=== PATIENT | female | born 1960 | race Caucasian/White ===

== ENCOUNTER 2020-10-12 23:27 | Emergency (ER) | payer OTHER ==
[~2020-10-12 23:27] MED LIST: ASPIR-LOW81 MG PO; IMDUR ER TAB 6060 MG PO; ISOSORBIDE MONO60 MG PO; LANSOPRAZOLE15 MG PO; LIPITOR TAB 2020 MG PO; LISINOPRIL20 MG PO; LOPRESSOR50 MG PO; MUCINEX DM ER1 EAC1 PO; NEURONTIN800 MG PO; NORVASC10 MG PO; NOVOLIN 70100 UNIT/2 SQ; NOVOLOG 10100 UNITS2 SQ; OMNICEF 300 MG300 MG PO; PLAVIX 75 MG TA75 MG PO; PREVACID 24HR15 MG PO; PRINIVIL20 MG PO; RANEXA1000 MG PO; RANEXA500 MG PO; TOUJEO SQ; TRESIBA100 UNIT/1 SQ; ULTRAM50 MG PO; ZANAFLEX4 M1 PO
[2020-10-13 01:17] LABS: RED BLOOD COUNT 4.19 M/UL (4.00-5.10); WHITE BLOOD COUNT 6.8 K/UL (4.5-11.0)
== END 2020-10-13 03:55 | disposition home or self-care (01) ==
LOC: ER1 23:27
PROVIDERS: Physician Assistant
DX: R10.817 Generalized abdominal tenderness (principal); R11.0 Nausea; E11.43 Type 2 diabetes mellitus with diabetic autonomic (poly)neuropathy; K31.84 Gastroparesis; I25.10 Atherosclerotic heart disease of native coronary artery without angina pectoris; I10 Essential (primary) hypertension; I25.2 Old myocardial infarction; F17.210 Nicotine dependence, cigarettes, uncomplicated; Z79.4 Long term (current) use of insulin; Z91.048 Other nonmedicinal substance allergy status; Z98.61 Coronary angioplasty status; Z98.890 Other specified postprocedural states
CPT/HCPCS: 80053; 81001; 83690; 85025; 87077; 87086; 87186; 96374; 96375; 99284; Q9967

== ENCOUNTER → 2021-03-26 | Outpatient (CLI) | payer OTHER | LOC: MRI 12:52 | DX: M50.323 Other cervical disc degeneration at C6-C7 level (principal); M48.02 Spinal stenosis, cervical region; M47.812 Spondylosis without myelopathy or radiculopathy, cervical region | CPT/HCPCS: 72141 ==

== ENCOUNTER 2021-06-09 16:25 | Emergency (ER) | payer OTHER ==
[2021-06-09 18:18] LABS: HEMOGLOBIN 8.1 gm/dl (12.3-15.3); RED BLOOD COUNT 2.91 M/UL (4.00-5.10); WHITE BLOOD COUNT 4.7 K/UL (4.5-11.0)
== END 2021-06-10 01:22 | disposition home or self-care (01) ==
LOC: ER1 16:25
PROVIDERS: Physician Assistant
DX: D64.9 Anemia, unspecified (principal); E11.9 Type 2 diabetes mellitus without complications; I25.10 Atherosclerotic heart disease of native coronary artery without angina pectoris; I10 Essential (primary) hypertension; F17.200 Nicotine dependence, unspecified, uncomplicated
CPT/HCPCS: 36430; 80053; 85025; 86850; 86900; 86901; 86920; 99284; P9016

== ENCOUNTER 2021-08-10 13:02 | Observation (INO) | payer OTHER ==
[~2021-08-10] VITALS: Ht 170.2 cm; Wt 85.3 kg
[2021-08-10 14:03] LABS: RED BLOOD COUNT 3.25 M/UL (4.00-5.10); WHITE BLOOD COUNT 3.7 K/UL (4.5-11.0)
[2021-08-10 14:14] LABS: BUN/CREATININE RATIO 14 (0-10)
[2021-08-11 07:02] LABS: HEMOGLOBIN 8.1 gm/dl (12.3-15.3); RED BLOOD COUNT 3.25 M/UL (4.00-5.10); WHITE BLOOD COUNT 3.4 K/UL (4.5-11.0)
== END 2021-08-11 12:27 | disposition left against medical advice (07) ==
LOC: ER1 13:02 → CDU 17:39 → MED SURG 4 22:42
PROVIDERS: Student in an Organized Health Care Education/Training Program; ADMIT Internal Medicine
DX: R55 Syncope and collapse (principal); N17.9 Acute kidney failure, unspecified; E86.0 Dehydration; D64.9 Anemia, unspecified; D72.819 Decreased white blood cell count, unspecified; I25.10 Atherosclerotic heart disease of native coronary artery without angina pectoris; E11.40 Type 2 diabetes mellitus with diabetic neuropathy, unspecified; Z20.822 Contact with and (suspected) exposure to COVID-19; Z53.29 Procedure and treatment not carried out because of patient's decision for other reasons; Z95.1 Presence of aortocoronary bypass graft; Z79.82 Long term (current) use of aspirin; Z79.4 Long term (current) use of insulin; Z79.02 Long term (current) use of antithrombotics/antiplatelets; Z91.048 Other nonmedicinal substance allergy status
CPT/HCPCS: 70450; 71045; 72125; 80048; 80053; 82550; 82553; 82962; 83874; 84484; 85025; 93005; 96372; 99285; G0378; J1650; J7030; U0002

== ENCOUNTER → 2021-08-22 | Outpatient (CLI) | payer OTHER | LOC: HEART 5 08:07 | DX: R94.31 Abnormal electrocardiogram [ECG] [EKG] (principal); I25.10 Atherosclerotic heart disease of native coronary artery without angina pectoris | CPT/HCPCS: 78452; A9502; J2785 ==

== ENCOUNTER → 2021-09-26 | Outpatient (CLI) | payer OTHER | LOC: CT 09:05 | DX: I65.29 Occlusion and stenosis of unspecified carotid artery (principal) | CPT/HCPCS: 70498; Q9967 ==

== ENCOUNTER 2021-10-24 13:21 | Emergency (ER) | payer OTHER ==
[2021-10-24 13:47] LABS: HEMOGLOBIN 8.9 gm/dl (12.3-15.3); RED BLOOD COUNT 4.03 M/UL (4.00-5.10); WHITE BLOOD COUNT 6.7 K/UL (4.5-11.0)
[2021-10-24 14:06] LABS: BUN/CREATININE RATIO 14 (0-10)
== END 2021-10-24 17:30 | disposition home or self-care (01) ==
LOC: ER1 13:21
PROVIDERS: Emergency Medicine
DX: D64.9 Anemia, unspecified (principal); R55 Syncope and collapse; E11.9 Type 2 diabetes mellitus without complications; I11.9 Hypertensive heart disease without heart failure; I25.10 Atherosclerotic heart disease of native coronary artery without angina pectoris; F17.200 Nicotine dependence, unspecified, uncomplicated; E78.5 Hyperlipidemia, unspecified; Z95.1 Presence of aortocoronary bypass graft
CPT/HCPCS: 70450; 71045; 80053; 80307; 81001; 82550; 82553; 83605; 83874; 84484; 85025; 99285